=== PATIENT | male | born 1955 | race Caucasian/White ===

== ENCOUNTER → 2020-10-05 | Outpatient (CLI) | payer MEDICARE | LOC: M.RAD 15:39 | PROVIDERS: ATTEND Internal Medicine | DX: R07.9 Chest pain, unspecified (principal); R06.00 Dyspnea, unspecified ==

== ENCOUNTER → 2020-10-17 | Outpatient (CLI) | payer MEDICARE ==
--- NOTE | 2020-10-17 17:45 | 2DMMODE ---
[place] [address] 2 D/M-MODE ECHOCARDIOGRAM Name: SHANNON MELENDEZ Room: [facility]#: [id number] Admission: 10/17/20 Attend Phys: Najma Sandoval, Discharge: Date of : 53 Date of Service: 10/17/20 1745 Report #: [id number] THIS REPORT FOR: cc: Jayy Almaraz MD, Matthew W. MD Holkins, John M. MD [facility] ~ APPROVED REPORT Study performed: 10/17/2020 10:39:23 EXAM: Comprehensive 2D, Doppler, and color-flow Echocardiogram Patient Location: Out-Patient BSA: 1.97 HR: 62 bpm BP: 138/85 mmHg Other Information Study Quality: Good Indications Chest Pain 2D Dimensions IVSd: 10.42 (7-11mm) LVOT Diam: 20.25 (18-24mm) LVDd: 51.98 mm PWd: 9.79 (7-11mm) Ascending Ao: 33.89 (22-36mm) LVDs: 31.83 (25-40mm) Aortic Root: 31.95 mm Volumes Left Atrial Volume (Systole) LA ESV Index: 21.10 mL/m2 Aortic Valve AoV Peak Hima.: 0.89 m/s AO Peak Gr.: 3.18 mmHg LVOT Max P.92 mmHg AO Mean Gr.: 1.54 mmHg LVOT Mean P.99 mmHg LVOT Max V: 0.69 m/s AO V2 VTI: 15.17 cm LVOT Mean V: 0.46 m/s MICHAEL (VTI): 3.17 cm2 LVOT V1 VTI: 14.92 cm Mitral Valve E/A Ratio: 0.83 [place] [address] 2 D/M-MODE ECHOCARDIOGRAM Name: SHANNON MELENDEZ Room: [facility]#: [id number] Admission: 10/17/20 Attend Phys: Najma Sandoval, Discharge: Date of : 53 Date of Service: 10/17/20 1745 Report #: [id number] MV Decel. Time: 296.29 ms MV E Max Hima.: 0.46 m/s MV PHT: 85.92 ms MVA (PHT): 2.56 cm2 TDI E/Lateral E': 5.75 E/Medial E': 6.57 Medial E' Hima.: 0.07 m/s Lateral E' Hima.: 0.08 m/s Pulmonary Valve PV Peak Hima.: 1.08 m/s PV Peak Gr.: 4.68 mmHg Left Ventricle The left ventricle is normal size. There is normal LV segmental wall motion. There is normal left ventricular wall thickness. Left ventricular systolic function is normal. The left ventricular ejection fraction is within the normal range. LVEF is 55-60%. Grade I - abnormal relaxation pattern. Right Ventricle The right ventricle is normal size. The right ventricular systolic function is normal. Atria The left atrium size is normal. The right atrium size is normal. Aortic Valve The aortic valve is normal in structure. No aortic regurgitation is present. There is no aortic valvular stenosis. Mitral Valve The mitral valve is normal in structure. There is no mitral valve regurgitation noted. No evidence of mitral valve stenosis. Tricuspid Valve The tricuspid valve is normal in structure. There is no tricuspid valve regurgitation noted. Pulmonic Valve The pulmonary valve is normal in structure. There is no pulmonic valvular regurgitation. Great Vessels The aortic root is normal in size. IVC [place] [address] 2 D/M-MODE ECHOCARDIOGRAM Name: SHANNON MELENDEZ Room: [facility]#: [id number] Admission: 10/17/20 Attend Phys: Najma Sandoval, Discharge: Date of : 53 Date of Service: 10/17/20 1745 Report #: [id number] collapses >50% with inspiration. Pericardium There is no pericardial effusion. <Conclusion> The left ventricle is normal size. There is normal left ventricular wall thickness. Left ventricular systolic function is normal. The left ventricular ejection fraction is within the normal range. LVEF is 55-60%. Grade I - abnormal relaxation pattern. The right ventricle is normal size. The left atrium size is normal. The aortic valve is normal in structure. The mitral valve is normal in structure. The tricuspid valve is normal in structure. IVC is normal in size and collapses >50% with inspiration. There is no pericardial effusion. There is normal LV segmental wall motion. <ELECTRONICALLY SIGNED> By: Sung Shultz MD, FACC 10/17/201744 44 44 Sung Shultz MD, FACC /INF
--- NOTE | 2020-10-18 11:14 | CARDNUC ---
[place] [address] CARDIAC NUCLEAR IMAGING REPORT Name: SHANNON MELENDEZ Room: [facility]#: [id number] Admission: 10/17/20 Attend Phys: Najma Sandoval, Discharge: Date of : 53 Date of Service: 10/18/20 1114 Report #: [id number] THIS REPORT FOR: cc: Jayy Almaraz MD, Matthew W. MD Biggs, F. Douglas MD [facility] ~ APPROVED REPORT Study performed: 10/17/2020 09:33:17 Exam: Nuclear Stress Test Indication: Chest pain, Dyspnea. Patient Location: Out-Patient Stress Tech: Raissa Pillai Stress Nurse: Helder Sierra Tech:LISA Santos Ht: 5 ft 10 in Wt: 174 lbs BSA: 1.97 m2 BMI: 24.96 Medical History Medical History: Chest pain, Dyspnea, Palpitations, GERD, Ratliff's Esophagus, Cataract removal, BPH, Knee pain, Cardiac Event monitor, HLD, HTN. Medications: No cardiac medications. Allergies: Neomycin. Cardiac Risk Factors: Age, FHX of CAD, HTN, Hyperlipidemia, SOB, Palpitations. Previous Cardiac Procedures: Cardiac Event Monitor. Pretest Chest Pain Characteristics: No chest pain Exercise History: Physically active Physical Disabilities: Knee pain. Meds Held (24 hrs): None Stress Test Details Stress Test: Exercise stress testing was performed using a Sai protocol. HR Resting HR: 56 bpm Max Heart Rate (APMHR): 154 bpm Max HR Achieved: 145 bpm Target HR (85% APMHR): 130 bpm % of APMHR: 94 Recovery HR: 94 bpm HR response to stress: [place] [address] CARDIAC NUCLEAR IMAGING REPORT Name: SHANNON MELENDEZ Room: [facility]#: [id number] Admission: 10/17/20 Attend Phys: Najma Sandoval, Discharge: Date of : 53 Date of Service: 10/18/20 1114 Report #: [id number] Resting BP: 138/85 mmHg Max BP: 211/82 mmHg BP response to stress: Abnormal hypertensive response to stress. ECG Resting ECG: Sinus Rhythm with late transition and a borderline widened QRS Stress ECG: Sinus Tachycardia otherwise as above ST Change: None Maximum ST Deviation: 0 mm Arrhythmia: VPC's Recovery ECG: Sinus Rhythm otherwise as above Recovery ST Change: None Recovery ST Deviation: 0 mm Recovery Arrhythmia: VPCs Clinical Reason for Termination: Completed protocol, Maximal effort, Patient Request. Stress Symptoms: Dyspnea, PVC's. Exercise duration: 11 min 29 sec Exercise capacity: 13.48 METs Overall Exercise Capacity for Age: Superior Nurse Comments A 65 year old male presented for a Treadmill Nuclear Stress Test. Treadmill tolerated to Stage 4. Recovery unremarkable. Patient was stable and stated he felt good when escorted to Nuclear Medicine for imaging. Stress ECG Conclusion ECG: Non-ischemic Clinical: Non-ischemic Normal submaximal stress test. NM EXAM: Myocardial Perfusion REST/STRESS Imaging Protocol: Rest Tc-99m/Stress Tc-99m 1 day Resting Data Rest SPECT myocardial perfusion imaging was performed in supine position 30 minutes following the intravenous injection of 10.7 mCi of Tc-99m Sestamibi. Time of rest injection: 0750 Date: 10/17/2020 The images were gated to evaluate regional [place] [address] CARDIAC NUCLEAR IMAGING REPORT Name: SHANNON MELENDEZ Room: [facility]#: [id number] Admission: 10/17/20 Attend Phys: Najma Sandoval, Discharge: Date of : 53 Date of Service: 10/18/20 1114 Report #: [id number] left ventricular ejection fraction. Administration Route: IV Administration Site: Right AC Exercise Stress At peak stress, the patient was injected intravenously with 29.2mCi of Tc-99m Sestamibi. Time of stress injection: 949 Date: 10/17/2020 Administration Route: IV Administration Site: Right AC Gated Stress SPECT was performed 30 minutes after stress injection. The images were gated to evaluate regional wall motion and calculate left ventricular ejection fraction. Prone imaging was performed. Study Data At rest, the left ventricular ejection fraction was 54%.. Post stress, the left ventricular ejection was 55%.. SSS: 0 SRS: 0 SDS: 0 TID = 0.90. Perfusion The resting study demonstrated a small mild inferior defect. The post-rest images demonstrate a very small very mild inferior defect. Prone images were normal. There were no defects seen. There therefore no reversible defects seen and there is no evidence of myocardial ischemia. Images were reviewed using Bit9. Wall Motion Normal left ventricular wall motion. Nuclear Conclusion ECG Findings: negative for ischemia Clinical Findings: negative for ischemia Nuclear Findings: negative for ischemia Exercise Capacity: Superior Left Ventricular Function: normal Risk Study: low Normal study. No scintigraphic evidence for myocardial ischemia or scar. <Conclusion> [place] [address] CARDIAC NUCLEAR IMAGING REPORT Name: SHANNON MELENDEZ Room: [facility]#: [id number] Admission: 10/17/20 Attend Phys: Najma Sandoval, Discharge: Date of : 53 Date of Service: 10/18/20 1114 Report #: [id number] ECG: Non-ischemic Clinical: Non-ischemic Normal submaximal stress test. <ELECTRONICALLY SIGNED> By: Najma Sandoval MD, FACC 10/18/20 1114 13 13 Najma Sandoval MD, [facility] /INF
== END ==
LOC: M.CRD 10-06 07:34 → M.NUC 07:29
PROVIDERS: ATTEND Internal Medicine
DX: R07.9 Chest pain, unspecified (principal); R06.00 Dyspnea, unspecified